=== PATIENT | female | born 1980 | race Caucasian/White ===

== ENCOUNTER 2017-09-04 12:29 | Day surgery (SDC) | payer OTHER ==
[2017-09-01 15:47] VITALS: BMI 36.6
[2017-09-04 14:40] VITALS: TEMP 97.9
[2017-09-04 15:21] VITALS: BP 116/63; PULSE 68
--- NOTE | 2017-09-06 11:06 | PATH ---
Surgical Pathology Report Patient Name: MENDEL MARTINEZ [facility]. Rec. #: [id number] /Age/Gender: 1980 (Age: 37) / F Account: [id number] Location: U-ENDOSCOPY Taken: 09/04/2017 Received: 09/04/2017 Reported: 09/06/2017 Physicians: Fawad Palencia D.O. Specimen(s) Received A: BX TERMINAL ILEUM B: BX CECUM AND RIGHT COLON C: BX ULCER RIGHT COLON D: BX TRANSVERSE COLON E: BX DESCENDING COLON F: BX SIGMOID G: BX RECTUM Clinical History History of Crohn's disease Postoperative diagnosis: Colitis Final Diagnosis A. TERMINAL ILEUM, BIOPSY]: TERMINAL ILEUM MUCOSA WITH LYMPHOID AGGREGATES. B. CECUM AND RIGHT COLON, BIOPSY: COLONIC MUCOSA WITH ACTIVE CHRONIC INFLAMMATION OF LAMINA PROPRIA, ACUTE CRYPTITIS, AND CRYPT ABSCESS. C. ULCER RIGHT COLON, BIOPSY: COLONIC MUCOSA WITH ACTIVE CHRONIC INFLAMMATION OF LAMINA PROPRIA AND ACUTE CRYPTITIS. D. TRANSVERSE COLON, BIOPSY: COLONIC MUCOSA WITH ACTIVE CHRONIC INFLAMMATION OF LAMINA PROPRIA, ACUTE CRYPTITIS, CRYPT ABSCESS, AND CRYPTAL DISTORTION. SEPARATE FRAGMENT OF GRANULATION TISSUE WITH ACUTE INFLAMMATION. E. DESCENDING COLON, BIOPSY: COLONIC MUCOSA WITH ACTIVE CHRONIC INFLAMMATION OF LAMINA PROPRIA, NON-NECROTIZING GRANULOMA FORMATION, ACUTE CRYPTITIS, CRYPT ABSCESS, AND CRYPTAL DISTORTION. F. SIGMOID COLON, BIOPSY: COLONIC MUCOSA WITH ACTIVE CHRONIC INFLAMMATION OF LAMINA PROPRIA, NON-NECROTIZING GRANULOMA FORMATION, ACUTE CRYPTITIS, CRYPT ABSCESS, AND CRYPTAL DISTORTION. SEPARATE FRAGMENT OF GRANULATION TISSUE WITH ACUTE INFLAMMATION. G. RECTUM, BIOPSY: COLONIC MUCOSA WITH MILD CHRONIC INFLAMMATION, NON-NECROTIZING GRANULOMA FORMATION, AND LYMPHOID AGGREGATES. COMMENT: THERE IS NO DYSPLASIA, PARASITE OR VIRAL INCLUSIONS. PAS FOR FUNGI AND AFB STAIN DONE ON SECTIONS FROM BLOCK E1, F1, G1 WERE NEGATIVE. Electronically Signed Catrina Freitas M.D. Gross Description A. Received in formalin, labeled "terminal ileum" are 3tan, irregular portions of soft tissue measuring 0.2 and 0.3 cm. in greatest dimension. The specimens are submitted in toto in one cassette. B. Received in formalin, labeled "cecum and right colon" are 4 jefferson, irregular portions of soft tissue measuring 0.1 cm. in greatest dimension. The specimens are submitted in toto in one cassette. C. Received in formalin, labeled "ulcer right colon" are 2 jefferson, irregular portions of soft tissue measuring 0.1 and 0.2 cm. in greatest dimension. The specimens are submitted in toto in one cassette. D. Received in formalin, labeled "transverse colon" are multiple (6) jefferson, irregular portions of soft tissue measuring 0.1 and 0.2 cm. in greatest dimension. The specimens are submitted in toto in one cassette. E. Received in formalin, labeled "descending colon" are 5 jefferson, irregular portions of soft tissue measuring 0.1 and 0.2 cm. in greatest dimension. The specimens are submitted in toto in one cassette. F. Received in formalin, labeled "sigmoid colon" are multiple (6) jefferson, irregular portions of soft tissue measuring 0.1 and 0.2 cm. in greatest dimension. The specimens are submitted in toto in one cassette. G. Received in formalin, labeled "rectum" are 3 jefferson, irregular portions of soft tissue measuring 0.2 cm. in greatest dimension. The specimens are submitted in toto in [one] cassette. FAUSTINO/09/04/2017 manohar09/04/2017
[2017-09-07 00:07] LABS: HBSAG SCREEN Negative (Negative); HEP A AB, IGM Negative (Negative); HEP B CORE AB, TOT Negative (Negative)
[2017-09-08 14:15] LABS: ATYPICAL pANCA <1:20 titer (Neg:<1:20)
== END 2017-09-04 15:28 | disposition home or self-care (01) ==
LOC: JASU-ENDO 12:29
PROVIDERS: ATTEND Internal Medicine Gastroenterology
PROC: 0DBE8ZX Excision of Large Intestine, Via Natural or Artificial Opening Endoscopic, Diagnostic (ICD-10-PCS; principal; 2017-09-04 13:30)
DX: K51.80 Other ulcerative colitis without complications (principal); K64.8 Other hemorrhoids
CPT/HCPCS: 36415; 84703; 86256; 86480; 86671; 86704; 86706; 86708; 86753; 87045; 87046; 87177; 87209; 87328; 87329; 87340; 88305-TC; 88312-TC

== ENCOUNTER 2018-11-04 20:40 | Emergency (ER) | payer OTHER ==
[2018-11-04 20:45] VITALS: BP 128/81; PULSE 74; TEMP 98.2; BMI 36.6
--- NOTE | 2018-11-04 21:58 | PDOC ---
History of Present Illness - General Chief Complaint: Pain Stated Complaint: HAND PAIN Time Seen by Provider: 11/04/18 21:33 History Source: Patient Exam Limitations: Clinical Condition - History of Present Illness Initial Comments: 11/04/18 21:52 Patient with no significant past medical history present with complaint of over 2 weeks history of left wrist pain on radial aspect and left thumb pain which is worse when she flexes to left thumb. Denies any trauma or injury to hand or wrist. Reported intermittent tingling sensation to left thumb. Timing/Duration: other (2 weeks) Past History - Past Medical History Allergies/Adverse Reactions: Allergies Allergy/AdvReac Type Severity Reaction Status Date / Time No Known Allergies Allergy Verified 05/18/12 16:00 Home Medications: Ambulatory Orders Azathioprine [Imuran -] 175 mg PO DAILY 09/01/17 Arm Brace [Wrist Brace] 1 each MC DAILY #1 each 11/04/18 Naproxen 500 mg PO BID PRN #20 tablet 11/04/18 Anemia: No Asthma: No Cancer: No CVA: No COPD: No Dementia: No Diabetes: No GI Disorders: Yes (constipation, CROHN'S) Disorders: No HTN: No Hypercholesterolemia: No Liver Disease: No Seizures: No Thyroid Disease: No - Surgical History Abdominal Surgery: No Appendectomy: No Cardiac Surgery: No Cholecystectomy: No Lung Surgery: No Neurologic Surgery: No Orthopedic Surgery: No - Suicide/Smoking/Psychosocial Hx Smoking Status: Yes Smoking History: Never smoked Number of Cigarettes Smoked Daily: 0 Hx Alcohol Use: No Drug/Substance Use Hx: No Substance Use Type: None Review of Systems - Review of Systems Able to Perform ROS?: Yes Is the patient limited Montenegrin proficient: No Constitutional: Yes: Weakness (left thumb) HEENTM: No: Symptoms Reported Respiratory: No: Symptoms reported Cardiac (ROS): No: Symptoms Reported Musculoskeletal: Yes: Symptoms Reported, See HPI, Joint Pain (left wrist on radial side), Muscle Pain (left thumb) Integumentary: No: Symptoms Reported, See HPI Neurological: Yes: Symptoms reported, See HPI, Numbness (left thumb), Tingling ( left thumb) All Other Systems: Reviewed and Negative *Physical Exam - Vital Signs Last Vital Signs Temp Pulse Resp BP Pulse Ox 98.2 F 74 20 128/81 98 11/04/18 20:41 11/04/18 20:41 11/04/18 20:41 11/04/18 20:41 11/04/18 20:41 - Physical Exam Comments: 11/04/18 21:56 GENERAL: Well developed, well nourished. Awake and alert. No acute distress. PULMONARY: No evidence of respiratory distress. MUSCULOSKELETAL : moderate TTP over MCP of left thumb and radial aspect of left wrist with increased pain to radial aspect of wrist with ulnar deviation. 5/5 muscle strength to left thumb SKIN: Warm and dry. Normal capillary refill. No swelling NEUROLOGICAL: Alert, awake, appropriate. No motor deficits in the lower extremities. Gait is normal without ataxia. PSYCHIATRIC: Cooperative. Good eye contact. Appropriate mood and affect. General Appearance: Yes: Nourished, Appropriately Dressed. No: Apparent Distress ED Treatment Course - RADIOLOGY Radiology Studies Ordered: Category Date Time Status WRIST W/HAND-LEFT* [RAD] Stat Radiology 11/04/18 21:40 Ordered Medical Decision Making - Medical Decision Making 11/04/18 21:53 Patient with no significant past medical history present with complaint of over 2 weeks history of left wrist pain on radial aspect and left thumb pain which is worse when she flexes to left thumb. Denies any trauma or injury to hand or wrist. Reported intermittent tingling sensation to left thumb. Exam significant for moderate tenderness to MCP of left thumb and left wrist on the radial aspect which is worse with medial deviation of left wrist. Symptoms likely de quevain's tendonitis X-ray of left wrist and hand ordered to rule out acute pathology *DC/Admit/Observation/Transfer Diagnosis at time of Disposition: De Quervain's tenosynovitis, left - Discharge Dispostion Disposition: HOME Condition at time of disposition: Stable Decision to Admit order: No - Prescriptions Prescriptions: Arm Brace [Wrist Brace] 1 each MC DAILY #1 each Naproxen 500 mg PO BID PRN #20 tablet PRN Reason: pain - Referrals Referrals: Mika Jones MD [Staff Physician] - - Patient Instructions Printed Discharge Instructions: De Quervain's Tenosynovitis, DI for Tenosynovitis Additional Instructions: x-ray of the left wrist or hand was normal. Take prescribed medication as needed for pain. Use prescribed wrist brace daily. Follow-up referred hand orthopedics if no improvement in 3 days - Post Discharge Activity
[2018-11-04] MEDS ORDERED: NAPROXEN 500 MG TABLET (FP) PO ONE (22:04)
[2018-11-04] MEDS ORDERED: NAPROXEN 500 MG TABLET (FP) ONE (22:04)
== END 2018-11-04 22:10 | disposition home or self-care (01) ==
LOC: JERFT 20:40
PROC: 2W3DX1Z Immobilization of Left Lower Arm using Splint (ICD-10-PCS; principal; 2018-11-04)
DX: M65.4 Radial styloid tenosynovitis [de Quervain] (principal)
CPT/HCPCS: 73110-TC-LT-FY; 73130-TC-LT-FY; 99281-25

== ENCOUNTER 2024-08-31 14:11 | Emergency (ER) | payer OTHER ==
[2024-08-31 14:25] VITALS: BP 128/72; PULSE 73; RESP 20; TEMP 97.8; BMI 37.0
[2024-08-31] MEDS ORDERED: LIDOCAINE HCL 2% (20ML MULTI-DOSE VIAL) ONE (14:30)
[2024-08-31] MEDS ORDERED: DIPHTH,PERTUSS(ACELL),TET 0.5 ML DISP.SYRIN IM ONE (14:45)
[2024-08-31] MEDS: DIPHTH,PERTUSS(ACELL),TET 0.5 ML DISP.SYRIN IM ONE (14:50)
[2024-08-31] MEDS: LIDOCAINE HCL 2% (50ML VIAL) PNB ONE (14:50)
== END 2024-08-31 15:06 | disposition home or self-care (01) ==
LOC: JERFT 14:11
PROC: 0HQGXZZ Repair Left Hand Skin, External Approach (ICD-10-PCS; principal; 2024-08-31)
PROC: 3E0234Z Introduction of Serum, Toxoid and Vaccine into Muscle, Percutaneous Approach (ICD-10-PCS; 2024-08-31)
DX: S61.213A Laceration without foreign body of left middle finger without damage to nail, initial encounter (principal); Z23 Encounter for immunization; W26.0XXA Contact with knife, initial encounter
CPT/HCPCS: 12002-25; 73140-TC-LT-FY; 90471; 90715; 99284-25